=== PATIENT | male | born 1975 | race Native Hawaiian/Other Pacific Islander ===

== ENCOUNTER 2023-02-27 05:45 | Emergency (ER) | payer BC ==
[~2023-02-27] VITALS: Ht 180.3 cm; Wt 81.6 kg
[2023-02-27 06:00] VITALS: BP 148/101; TEMP 97.9
== END 2023-02-27 07:27 | disposition home or self-care (01) ==
LOC: ED 05:45
DX: S39.012A Strain of muscle, fascia and tendon of lower back, initial encounter (principal); S80.01XA Contusion of right knee, initial encounter; W19.XXXA Unspecified fall, initial encounter
CPT/HCPCS: 96372; 99283; J1885